=== PATIENT | female | born 1950 | race Caucasian/White ===

== ENCOUNTER 2021-02-24 20:33 | Observation (INO) ==
[2021-02-24] MEDS ORDERED: 0.9 % Sodium Chloride 1,000 ML IVC ONE (21:09)
[2021-02-24 21:34] LABS: Basophils % 0.6 %; Platelet Count 387 K/mcL (140-400)
[2021-02-24 21:35] LABS: Basophils # 0.1 K/mcL (0.0-0.2); Eosinophils # 0.1 K/mcL (0.0-0.6); Eosinophils % 1.7 %; Hematocrit 22.2 % (35.3-44.9); Immature Granulocytes % 0.2 % (0-4); Lymphocytes # 1.4 K/mcL (0.6-4.6); Lymphocytes % 17.2 %; Mean Corpuscular HGB Conc 26.1 g/dL (31.6-35.5); Mean Corpuscular Volume 61.2 fL (83.0-100.0); Mean Platelet Volume 9.9 fL (9.4-12.4); Monocytes # 0.8 K/mcL (0.0-1.3); Monocytes % 9.4 %; Neutrophils # 5.7 K/mcL (1.6-8.9); Red Blood Count 3.63 M/mcL (3.82-4.97); Red Cell Distribution Width 18.7 % (11.5-14.5); Segmented Neutrophils % 70.9 %
[2021-02-24 21:38] LABS: Prothrombin Time 10.7 Seconds (9.4-12.1)
[2021-02-24 21:39] LABS: Hemoglobin 5.8 g/dL (11.5-15.4)
[2021-02-24 21:41] LABS: Activated Partial Thrombo Time 26.8 Seconds (26.0-36.0)
[2021-02-24 21:55] LABS: Hypochromasia Present (Not Present); Polychromasia 1+ (Not Present)
[2021-02-24 21:56] LABS: % Iron Saturation 2 % (15-50); Alanine Aminotransferase 20 Units/L (7-52); Albumin 4.5 g/dL (3.5-5.7); Alkaline Phosphatase 87 Units/L (34-104); Aspartate Amino Transferase 17 Units/L (13-39); Bilirubin,Direct 0.2 mg/dL (0.0-0.2); Bilirubin,Indirect 0.6 mg/dL (0.0-1.0); Bilirubin,Total 0.8 mg/dL (0.3-1.0); Calcium 9.2 mg/dL (8.6-10.3); Carbon Dioxide 24 mEq/L (23-29); Chloride 107 mEq/L (98-107); Globulin 2.3 g/dL (2.4-3.5); Glucose 130 mg/dL (70-105); Iron 10 mcg/dL (50-170); Potassium 3.2 mEq/L (3.5-5.1); Sodium 139 mEq/L (136-145); Total Protein 6.8 g/dL (6.4-8.9); Transferrin 446 mg/dL (203-362); Troponin I < 0.03 ng/mL (< 0.04); eGFR For African Americans > 60 (> 60); eGFR For Non-African Americans > 60 (> 60)
[2021-02-24 21:58] LABS: BUN/Creatinine Ratio 16 (6-26); Blood Urea Nitrogen 13 mg/dL (8-23); Osmolality,Calculated 290 (280-300)
[2021-02-24] MEDS ORDERED: Pantoprazole 40 MG VIAL IVP STA (22:06)
[2021-02-24] MEDS ORDERED: Ondansetron 4 MG/2 ML VIAL IVP PRN (22:15)
[2021-02-24] MEDS ORDERED: Acetaminophen 325 MG TABLET PO PRN (22:15)
[2021-02-24] MEDS ORDERED: Naloxone 0.4 MG/ML INJ IVP PRN (22:15)
[2021-02-24] MEDS ORDERED: Melatonin 3 MG TABLET PO PRN (22:15)
[2021-02-24] MEDS ORDERED: *HR* Promethazine 25 MG/ML VIAL IM PRN (22:15)
[2021-02-24] MEDS: Ringers Solution, Lactated 1,000 ML IVC SCH (22:46)
[2021-02-24] MEDS ORDERED: 0.9 % Sodium Chloride 250 ML ONE (22:54)
[2021-02-24 23:19] LABS: Influenza A PCR Negative (Negative); Influenza B PCR Negative (Negative); Resp. Syncytial Virus PCR Negative (Negative)
[2021-02-24 23:45] LABS: SARS-CoV-2 by PCR (In House) Negative (Negative)
[2021-02-25] MEDS ORDERED: Lidocaine -MPF 2% 5 ML VIAL ONE (07:54)
[2021-02-25 10:38] VITALS: O2SAT 96
[2021-02-25 10:48] LABS: Basophils % 0.4 %; Eosinophils # 0.1 K/mcL (0.0-0.6); Eosinophils % 0.8 %; Hematocrit 27.2 % (35.3-44.9); Hemoglobin 7.6 g/dL (11.5-15.4); Immature Granulocytes % 0.5 % (0-4); Lymphocytes # 0.9 K/mcL (0.6-4.6); Lymphocytes % 10.3 %; Mean Corpuscular HGB Conc 27.9 g/dL (31.6-35.5); Mean Corpuscular Hemoglobin 18.2 pg (28.0-33.3); Mean Corpuscular Volume 65.1 fL (83.0-100.0); Mean Platelet Volume 10.1 fL (9.4-12.4); Monocytes # 0.7 K/mcL (0.0-1.3); Monocytes % 7.8 %; Neutrophils # 7.3 K/mcL (1.6-8.9); Platelet Count 382 K/mcL (140-400); Red Blood Count 4.18 M/mcL (3.82-4.97); Red Cell Distribution Width 23.3 % (11.5-14.5); Segmented Neutrophils % 80.2 %; White Blood Count 9.1 K/mcL (4.3-11.1)
[2021-02-25 10:52] LABS: INR 1.1; Prothrombin Time 11.7 Seconds (9.4-12.1)
[2021-02-25 11:29] LABS: BUN/Creatinine Ratio 10 (6-26); Blood Urea Nitrogen 6 mg/dL (8-23); Calcium 9.5 mg/dL (8.6-10.3); Carbon Dioxide 22 mEq/L (23-29); Chloride 112 mEq/L (98-107); Glucose 107 mg/dL (70-105); Osmolality,Calculated 290 (280-300); Potassium 4.3 mEq/L (3.5-5.1); Sodium 141 mEq/L (136-145); eGFR For African Americans > 60 (> 60); eGFR For Non-African Americans > 60 (> 60)
[2021-02-25 11:30] LABS: Anisocytosis 2+ (Not Present); Hypochromasia Present (Not Present); Ovalocytes 1+ (Not Present); Poikilocytosis 1+ (Not Present); Polychromasia 1+ (Not Present)
[2021-02-25 11:31] LABS: Platelet Estimate Normal (Normal); Target Cells 1+ (Not Present)
[2021-02-25] MEDS ORDERED: Iron Sucrose Complex 200 MG in 0.9 % Sodium Chloride 100 ML IVPB ONE (11:40)
[2021-02-25] MEDS: Ringers Solution, Lactated 1,000 ML IVC SCH (13:35)
[2021-02-25 14:41] VITALS: BP 166/64; PULSE 91; TEMP 98.5
== END 2021-02-25 15:38 | disposition home or self-care (01) ==
LOC: EMEROOARM 20:33 → 3ANU 20:33
PROVIDERS: ADMIT Internal Medicine; ATTEND Internal Medicine